=== PATIENT | male | born 1950 | race Caucasian/White ===

== ENCOUNTER 2016-08-15 13:25 | Observation (INO) | payer MEDICARE ==
[~2016-08-15] VITALS: Ht 185.4 cm; Wt 88.5 kg
[~2016-08-15 13:25] MED LIST: ASPIR 8181 MG PO; CLINDAMYCIN HC300 MG PO; COREG 3.125M3.125 MG PO; GLUCOPHAGE XR500 M1 PO; LASIX 40 MG TAB40 MG PO; LIPITOR TAB 2020 MG PO; LISINOPRIL10 MG PO; MULTI-DAY VITA1 EACH PO; PLAVIX 75 MG TA75 MG PO; SPIRONOLACTONE25 MG PO
[2016-08-15 17:27] LABS: HEMOGLOBIN 11.9 gm/dl (14.0-17.5); RED BLOOD COUNT 4.41 M/UL (4.20-5.50); WHITE BLOOD COUNT 9.7 K/UL (4.5-11.0)
[2016-08-15 17:46] LABS: BUN/CREATININE RATIO 24 (0-10)
[2016-08-16] MEDS ORDERED: CLEOCIN HCL300 MG PO (14:44)
[2016-08-16] MEDS ORDERED: CIPRO500 MG PO (14:47)
[2016-08-16] MEDS ORDERED: BACTRIM DS TAB1 EACH PO (14:47)
== END 2016-08-16 15:36 | disposition home or self-care (01) ==
LOC: ER1 13:25 → ZEROF 20:30 → MED SURG 4 20:30
PROVIDERS: Emergency Medicine; ADMIT Internal Medicine
DX: E11.52 Type 2 diabetes mellitus with diabetic peripheral angiopathy with gangrene (principal); I11.0 Hypertensive heart disease with heart failure; I50.20 Unspecified systolic (congestive) heart failure; I73.9 Peripheral vascular disease, unspecified; I25.10 Atherosclerotic heart disease of native coronary artery without angina pectoris; Z87.891 Personal history of nicotine dependence; Z79.82 Long term (current) use of aspirin; Z79.899 Other long term (current) drug therapy; Z95.1 Presence of aortocoronary bypass graft
CPT/HCPCS: 36415; 73630; 80053; 82962; 84484; 85025; 86140; 87040; 87070; 87077; 87186; 87205; 93005; 93925; 96365; 99284; G0378; J1335; J7050